=== PATIENT | female | born 1965 | race Caucasian/White ===

== ENCOUNTER 2022-07-22 19:50 | Inpatient (IN) | payer OTHER ==
[2022-07-22] MEDS ORDERED: ACETAMINOPHEN 325 MG TABLET (FP) PO ONE (20:53)
[2022-07-22] MEDS ORDERED: ACETAMINOPHEN 325 MG TABLET (FP) ONE (20:57)
[2022-07-22] MEDS ORDERED: LIDOCAINE PATCH REMOVAL MC SCH (22:00)
[2022-07-22] MEDS ORDERED: LIDOCAINE 5% TOPICAL PATCH TP ONE (22:14)
[2022-07-22] MEDS ORDERED: LIDOCAINE 5% TOPICAL PATCH ONE (22:42)
[2022-07-22] MEDS ORDERED: oxyCODONE HCL 5 MG TABLET PO ONE (23:30)
[2022-07-23] MEDS ORDERED: oxyCODONE HCL 5 MG TABLET ONE (00:17)
[2022-07-23] MEDS ORDERED: FUROSEMIDE 40 MG TABLET (FP) PO ONE (00:17)
[2022-07-23] MEDS ORDERED: FUROSEMIDE 40 MG/4 ML INJECTABLE VIAL IVPUSH ONE (00:37)
[2022-07-23] MEDS ORDERED: morphine CARPU-JECT 4 MG/1 ML DISP.SYRIN IVPUSH ONE (00:38)
[2022-07-23 00:56] LABS: BASO % 1.1 % (0-2.0); EOS % 2.8 % (0-4.5); HEMATOCRIT 27.9 % (32.4-45.2); HEMOGLOBIN 9.4 GM/dL (10.7-15.3); LYMPH % 26.3 % (8-40); MCH 27.8 pg (25.7-33.7); MCHC 33.6 g/dl (32.0-36.0); MEAN CELL VOLUME 82.6 fl (80-96); MEAN PLT VOLUME 8.2 fl (7.5-11.1); MONO % 6.4 % (3.8-10.2); NEUT % 63.4 % (42.8-82.8); PLATELET COUNT 228 10^3/uL (134-434); RBC 3.38 M/mm3 (3.60-5.2); RDW 14.9 % (11.6-15.6); WHITE BLOOD COUNT 9.4 K/mm3 (4.0-10.0)
[2022-07-23] MEDS ORDERED: FUROSEMIDE 40 MG/4 ML INJECTABLE VIAL ONE (00:57)
[2022-07-23] MEDS ORDERED: morphine SULFATE 4 MG/ML VIAL ONE (00:57)
[2022-07-23 01:22] LABS: CALCIUM 8.2 mg/dL (8.5-10.1)
[2022-07-23 01:23] LABS: ALBUMIN 2.5 g/dl (3.4-5.0); BLOOD UREA NITROGEN 49.8 mg/dL (7-18)
[2022-07-23 01:26] LABS: CREATININE 3.9 mg/dL (0.55-1.3)
[2022-07-23 01:27] LABS: BILIRUBIN,TOTAL 0.2 mg/dL (0.2-1)
[2022-07-23 01:28] LABS: TOT PROT 5.8 g/dl (6.4-8.2)
[2022-07-23 01:31] LABS: N-TERMINAL BNP 2279.7 pg/ml (5-125)
[2022-07-23 03:19] LABS: EPI CELLS 3 /uL (0-25.1); HYALINE CASTS 1 /uL (0-3.1); URINE APPEARANCE CLEAR; URINE BACTERIA 11 /uL (0-1359); URINE BILIRUBIN NEGATIVE (NEGATIVE); URINE COLOR YELLOW; URINE GLUCOSE (UA) TRACE (NEGATIVE); URINE KETONE NEGATIVE (NEGATIVE); URINE LEUK ESTERASE NEGATIVE (NEGATIVE); URINE NITRITE NEGATIVE (NEGATIVE); URINE PROTEIN 3+ (NEGATIVE); URINE RBC 29 /uL (0-23.9); URINE UROBILINOGEN 0.2 mg/dL (0.2-1.0); URINE WBC 5 /uL (0-25.8)
[2022-07-23] MEDS: HEPARIN NA (PORCINE) 5,000 UNITS/ML 1ML VIAL SQ SCH ×3 (06:18→21:38)
[2022-07-23] MEDS: INSULIN SLIDING SCALE (NOVOLOG) 1 VIAL SQ SCH ×4 (06:19→21:57)
[2022-07-23 08:29] LABS: BASO % 1.1 % (0-2.0); EOS % 3.3 % (0-4.5); HEMATOCRIT 25.2 % (32.4-45.2); HEMOGLOBIN 8.4 GM/dL (10.7-15.3); LYMPH % 34.7 % (8-40); MCH 27.5 pg (25.7-33.7); MCHC 33.5 g/dl (32.0-36.0); MEAN CELL VOLUME 82.1 fl (80-96); MEAN PLT VOLUME 8.6 fl (7.5-11.1); MONO % 5.9 % (3.8-10.2); PLATELET COUNT 180 10^3/uL (134-434); RBC 3.07 M/mm3 (3.60-5.2); RDW 15.4 % (11.6-15.6); WHITE BLOOD COUNT 7.7 K/mm3 (4.0-10.0)
[2022-07-23] MEDS ORDERED: ALBUTEROL SO4 HFA INHALER IH PRN (08:30)
[2022-07-23] MEDS ORDERED: BISACODYL 5 MG TABLET.DR (FP) PO PRN (08:30)
[2022-07-23 08:40] LABS: CALCIUM 8.2 mg/dL (8.5-10.1)
[2022-07-23 08:41] LABS: ALBUMIN 2.2 g/dl (3.4-5.0); BLOOD UREA NITROGEN 48.9 mg/dL (7-18); MAGNESIUM 2.1 mg/dL (1.8-2.4)
[2022-07-23 08:44] LABS: CHOLESTEROL 184 mg/dL (50-200); CREATININE 3.9 mg/dL (0.55-1.3); PHOSPHOROUS 5.1 mg/dL (2.5-4.9)
[2022-07-23 08:45] LABS: TRIGLYCERIDES 275 mg/dL (0-150)
[2022-07-23 08:46] LABS: BILIRUBIN,TOTAL 0.2 mg/dL (0.2-1); LDL CHOLESTEROL (ONLY SJRH) 95 mg/dL (5-100); TOT PROT 5.1 g/dl (6.4-8.2)
[2022-07-23 08:47] LABS: HDL CHOLESTEROL 40 mg/dL (40-60)
[2022-07-23 08:48] LABS: IRON SERUM 38 ug/dL (50-175)
[2022-07-23 08:49] LABS: TOTAL IRON BINDING CAPACITY 262 ug/dL (250-450)
[2022-07-23] MEDS ORDERED: BUMETANIDE 1 MG TABLET PO SCH (10:00)
[2022-07-23] MEDS ORDERED: LIDOCAINE 5% TOPICAL PATCH TP SCH (10:00)
[2022-07-23] MEDS ORDERED: BUDESONIDE/FORMETEROL FUMARATE 160/4.5 mcg INHALER IH SCH (10:00)
[2022-07-23] MEDS ORDERED: NIFEDIPINE 20 MG PO SCH (10:00)
[2022-07-23] MEDS ORDERED: TIOTROPIUM BROMIDE 2.5 MCG (SPIRIVA) RESPIMAT INHALER IH SCH (10:00)
[2022-07-23] MEDS ORDERED: LIDOCAINE PATCH REMOVAL MC ONE (10:00)
[2022-07-23] MEDS: ASPIRIN 81 MG CHEWABLE TABLETS PO SCH ×2 (10:05→10:40)
[2022-07-23] MEDS: NICOTINE 7 MG/24 HOURS TOPICAL PATCH TD SCH (10:05)
[2022-07-23] MEDS: ACETAMINOPHEN 1000 MG/100 ML BAG IVPB PRN ×2 (11:15→18:56)
[2022-07-23] MEDS: busPIRone HCL 5 MG TABLET PO SCH ×2 (11:58→21:38)
[2022-07-23] MEDS: lamoTRIgine 25 MG TABLET PO SCH (11:59)
[2022-07-23] MEDS: LIDOCAINE 5% TOPICAL PATCH TP SCH (11:59)
[2022-07-23] MEDS: FUROSEMIDE 20 MG TABLET (FP) PO SCH (11:59)
[2022-07-23] MEDS: NIFEdipine E.R 60 MG TABLET PO SCH ×2 (11:59→21:39)
[2022-07-23] MEDS ORDERED: LORazepam 2 MG/ML SDV VIAL IVPUSH ONE (12:24)
[2022-07-23] MEDS ORDERED: hydrALAZINE HCL 20 MG/ML VIAL IVPUSH ONE (15:47)
[2022-07-23] MEDS ORDERED: QUEtiapine FUMARATE 50 MG TABLET ONE (21:35)
[2022-07-23] MEDS: ATORVASTATIN CA 80 MG TABLET (FP) PO SCH (21:39)
[2022-07-23] MEDS: LIDOCAINE PATCH REMOVAL MC SCH (21:39)
[2022-07-23] MEDS: QUEtiapine FUMARATE 100 MG TABLET (FP) PO SCH (21:39)
[2022-07-23] MEDS: BUDESONIDE/FORMETEROL FUMARATE 160/4.5 mcg INHALER IH SCH (21:40)
[2022-07-24] MEDS: HEPARIN NA (PORCINE) 5,000 UNITS/ML 1ML VIAL SQ SCH ×3 (05:47→21:13)
[2022-07-24] MEDS: hydrOXYzine PAMOATE 25 MG CAPSULE (FP) PO PRN ×3 (05:56→19:34)
[2022-07-24] MEDS: INSULIN SLIDING SCALE (NOVOLOG) 1 VIAL SQ SCH ×4 (08:58→21:16)
[2022-07-24] MEDS: ACETAMINOPHEN 500 MG TABLET (FP) PO SCH ×3 (09:27→21:14)
[2022-07-24] MEDS: NIFEdipine E.R 60 MG TABLET PO SCH (09:28)
[2022-07-24] MEDS: ASPIRIN 81 MG CHEWABLE TABLETS PO SCH (09:28)
[2022-07-24] MEDS: busPIRone HCL 5 MG TABLET PO SCH ×2 (09:28→21:14)
[2022-07-24] MEDS: FUROSEMIDE 20 MG TABLET (FP) PO SCH (09:29)
[2022-07-24] MEDS: lamoTRIgine 25 MG TABLET PO SCH (09:29)
[2022-07-24] MEDS: BUDESONIDE/FORMETEROL FUMARATE 160/4.5 mcg INHALER IH SCH ×2 (09:30→21:22)
[2022-07-24] MEDS: TIOTROPIUM BROMIDE 2.5 MCG (SPIRIVA) RESPIMAT INHALER IH SCH (09:30)
[2022-07-24] MEDS: NICOTINE 7 MG/24 HOURS TOPICAL PATCH TD SCH (09:30)
[2022-07-24] MEDS: LIDOCAINE 5% TOPICAL PATCH TP SCH ×2 (09:30→09:35)
[2022-07-24 09:35] LABS: HEMATOCRIT 25.2 % (32.4-45.2); HEMOGLOBIN 8.8 GM/dL (10.7-15.3); MCH 28.4 pg (25.7-33.7); MCHC 34.9 g/dl (32.0-36.0); MEAN CELL VOLUME 81.3 fl (80-96); MEAN PLT VOLUME 8.3 fl (7.5-11.1); PLATELET COUNT 177 10^3/uL (134-434); RBC 3.11 M/mm3 (3.60-5.2); RDW 15.1 % (11.6-15.6); WHITE BLOOD COUNT 6.9 K/mm3 (4.0-10.0)
[2022-07-24 10:08] LABS: BLOOD UREA NITROGEN 54.6 mg/dL (7-18)
[2022-07-24 10:09] LABS: ALBUMIN 2.1 g/dl (3.4-5.0); CALCIUM 8.2 mg/dL (8.5-10.1)
[2022-07-24 10:11] LABS: CREATININE 4.4 mg/dL (0.55-1.3); PHOSPHOROUS 6.3 mg/dL (2.5-4.9)
[2022-07-24 10:15] LABS: TOT PROT 4.9 g/dl (6.4-8.2)
[2022-07-24 10:17] LABS: BILIRUBIN,TOTAL 0.1 mg/dL (0.2-1)
[2022-07-24] MEDS: SODIUM CHLORIDE 1,000 ML IV SCH (12:13)
[2022-07-24 15:17] VITALS: BMI 24.8
[2022-07-24] MEDS ORDERED: NIFEdipine E.R. 30 MG TABLET PO SCH (16:10)
[2022-07-24] MEDS ORDERED: QUEtiapine FUMARATE 50 MG TABLET ONE (21:07)
[2022-07-24] MEDS: ATORVASTATIN CA 80 MG TABLET (FP) PO SCH (21:14)
[2022-07-24] MEDS: GABAPENTIN 100 MG CAPSULE PO SCH (21:14)
[2022-07-24] MEDS: LIDOCAINE PATCH REMOVAL MC SCH (21:15)
[2022-07-24] MEDS: QUEtiapine FUMARATE 100 MG TABLET (FP) PO SCH (21:16)
[2022-07-25] MEDS: hydrOXYzine PAMOATE 25 MG CAPSULE (FP) PO PRN ×2 (01:39→12:03)
[2022-07-25] MEDS: ACETAMINOPHEN 500 MG TABLET (FP) PO SCH ×3 (05:34→21:45)
[2022-07-25] MEDS: HEPARIN NA (PORCINE) 5,000 UNITS/ML 1ML VIAL SQ SCH ×3 (05:35→21:45)
[2022-07-25] MEDS: INSULIN SLIDING SCALE (NOVOLOG) 1 VIAL SQ SCH ×4 (06:03→21:45)
[2022-07-25] MEDS: ASPIRIN 81 MG CHEWABLE TABLETS PO SCH (11:18)
[2022-07-25] MEDS: BUDESONIDE/FORMETEROL FUMARATE 160/4.5 mcg INHALER IH SCH ×2 (11:20→21:45)
[2022-07-25] MEDS: NICOTINE 7 MG/24 HOURS TOPICAL PATCH TD SCH (11:20)
[2022-07-25] MEDS: TIOTROPIUM BROMIDE 2.5 MCG (SPIRIVA) RESPIMAT INHALER IH SCH (11:20)
[2022-07-25] MEDS: LIDOCAINE 5% TOPICAL PATCH TP SCH (11:20)
[2022-07-25] MEDS: lamoTRIgine 25 MG TABLET PO SCH (11:21)
[2022-07-25] MEDS: busPIRone HCL 5 MG TABLET PO SCH ×2 (11:21→21:45)
[2022-07-25] MEDS: SODIUM CHLORIDE 1,000 ML IV SCH ×2 (11:22→12:02)
[2022-07-25] MEDS ORDERED: INSULIN (NOVOLOG) ASPART 100 UNITS/ML 10ML VIAL ONE (12:00)
[2022-07-25 19:44] LABS: BASO % 0.8 % (0-2.0); EOS % 2.7 % (0-4.5); HEMATOCRIT 25.8 % (32.4-45.2); HEMOGLOBIN 8.7 GM/dL (10.7-15.3); LYMPH % 19.3 % (8-40); MCH 27.7 pg (25.7-33.7); MCHC 33.9 g/dl (32.0-36.0); MEAN CELL VOLUME 81.7 fl (80-96); MEAN PLT VOLUME 8.3 fl (7.5-11.1); NEUT % 72.2 % (42.8-82.8); PLATELET COUNT 169 10^3/uL (134-434); RBC 3.16 M/mm3 (3.60-5.2); RDW 14.9 % (11.6-15.6); WHITE BLOOD COUNT 5.7 K/mm3 (4.0-10.0)
[2022-07-25 20:06] LABS: ALBUMIN 2.4 g/dl (3.4-5.0); BLOOD UREA NITROGEN 50.8 mg/dL (7-18); MAGNESIUM 2.1 mg/dL (1.8-2.4)
[2022-07-25 20:09] LABS: CREATININE 4.2 mg/dL (0.55-1.3); PHOSPHOROUS 5.4 mg/dL (2.5-4.9)
[2022-07-25 20:11] LABS: BILIRUBIN,TOTAL 0.2 mg/dL (0.2-1); TOT PROT 5.4 g/dl (6.4-8.2)
[2022-07-25] MEDS ORDERED: QUEtiapine FUMARATE 50 MG TABLET ONE (21:13)
[2022-07-25] MEDS: QUEtiapine FUMARATE 100 MG TABLET (FP) PO SCH (21:45)
[2022-07-25] MEDS: ATORVASTATIN CA 80 MG TABLET (FP) PO SCH (21:45)
[2022-07-25] MEDS: LIDOCAINE PATCH REMOVAL MC SCH (21:45)
[2022-07-25] MEDS: GABAPENTIN 100 MG CAPSULE PO SCH (21:45)
[2022-07-25] MEDS: oxyCODONE HCL 5 MG TABLET PO PRN (21:46)
[2022-07-26] MEDS: ACETAMINOPHEN 500 MG TABLET (FP) PO SCH ×4 (06:57→22:41)
[2022-07-26] MEDS: INSULIN SLIDING SCALE (NOVOLOG) 1 VIAL SQ SCH ×4 (06:58→22:33)
[2022-07-26] MEDS: lamoTRIgine 25 MG TABLET PO SCH ×2 (08:26→09:32)
[2022-07-26] MEDS: busPIRone HCL 5 MG TABLET PO SCH ×3 (08:26→22:24)
[2022-07-26] MEDS: SODIUM CHLORIDE 1,000 ML IV SCH ×2 (08:27→22:29)
[2022-07-26] MEDS: LIDOCAINE 5% TOPICAL PATCH TP SCH ×2 (08:28→09:32)
[2022-07-26] MEDS: NIFEdipine E.R. 30 MG TABLET PO SCH ×2 (08:29→09:33)
[2022-07-26] MEDS: NICOTINE 7 MG/24 HOURS TOPICAL PATCH TD SCH ×2 (08:29→09:33)
[2022-07-26] MEDS: oxyCODONE HCL 5 MG TABLET PO PRN ×2 (09:30→22:44)
[2022-07-26] MEDS: BUDESONIDE/FORMETEROL FUMARATE 160/4.5 mcg INHALER IH SCH ×2 (09:31→22:31)
[2022-07-26] MEDS: ASPIRIN 81 MG CHEWABLE TABLETS PO SCH (09:32)
[2022-07-26] MEDS: TIOTROPIUM BROMIDE 2.5 MCG (SPIRIVA) RESPIMAT INHALER IH SCH (09:32)
[2022-07-26] MEDS: hydrOXYzine PAMOATE 25 MG CAPSULE (FP) PO PRN ×2 (11:04→22:44)
[2022-07-26 11:37] LABS: BASO % 0.9 % (0-2.0); EOS % 2.6 % (0-4.5); HEMATOCRIT 27.2 % (32.4-45.2); HEMOGLOBIN 9.3 GM/dL (10.7-15.3); LYMPH % 21.9 % (8-40); MCH 27.9 pg (25.7-33.7); MCHC 34.1 g/dl (32.0-36.0); MEAN CELL VOLUME 81.7 fl (80-96); MEAN PLT VOLUME 8.4 fl (7.5-11.1); NEUT % 68.6 % (42.8-82.8); PLATELET COUNT 189 10^3/uL (134-434); RBC 3.33 M/mm3 (3.60-5.2); RDW 15.1 % (11.6-15.6); WHITE BLOOD COUNT 6.4 K/mm3 (4.0-10.0)
[2022-07-26 11:44] LABS: INR 0.99 (0.83-1.09); PROTHROMBIN TIME (PATIENT) 11.5 SEC (9.7-13.0)
[2022-07-26 12:05] LABS: BLOOD UREA NITROGEN 46.2 mg/dL (7-18); CALCIUM 8.3 mg/dL (8.5-10.1)
[2022-07-26 12:06] LABS: ALBUMIN 2.5 g/dl (3.4-5.0); MAGNESIUM 2.2 mg/dL (1.8-2.4)
[2022-07-26 12:09] LABS: CREATININE 3.7 mg/dL (0.55-1.3); PHOSPHOROUS 4.5 mg/dL (2.5-4.9)
[2022-07-26 12:10] LABS: BILIRUBIN,TOTAL 0.3 mg/dL (0.2-1)
[2022-07-26 12:11] LABS: TOT PROT 5.8 g/dl (6.4-8.2)
[2022-07-26] MEDS ORDERED: QUEtiapine FUMARATE 50 MG TABLET ONE (21:27)
[2022-07-26] MEDS: QUEtiapine FUMARATE 100 MG TABLET (FP) PO SCH (22:25)
[2022-07-26] MEDS: ATORVASTATIN CA 80 MG TABLET (FP) PO SCH (22:26)
[2022-07-26] MEDS: HEPARIN NA (PORCINE) 5,000 UNITS/ML 1ML VIAL SQ SCH (22:26)
[2022-07-26] MEDS: GABAPENTIN 100 MG CAPSULE PO SCH (22:26)
[2022-07-26] MEDS: LIDOCAINE PATCH REMOVAL MC SCH (22:35)
[2022-07-27] MEDS: HEPARIN NA (PORCINE) 5,000 UNITS/ML 1ML VIAL SQ SCH ×3 (06:10→21:02)
[2022-07-27] MEDS: ACETAMINOPHEN 500 MG TABLET (FP) PO SCH ×4 (06:10→21:04)
[2022-07-27] MEDS: INSULIN SLIDING SCALE (NOVOLOG) 1 VIAL SQ SCH ×4 (06:16→21:03)
[2022-07-27] MEDS: SODIUM CHLORIDE 1,000 ML IV SCH (07:39)
[2022-07-27 08:48] LABS: HEMATOCRIT 26.7 % (32.4-45.2); HEMOGLOBIN 9.1 GM/dL (10.7-15.3); MCH 27.7 pg (25.7-33.7); MEAN CELL VOLUME 81.4 fl (80-96); MEAN PLT VOLUME 7.7 fl (7.5-11.1); PLATELET COUNT 189 10^3/uL (134-434); RBC 3.28 M/mm3 (3.60-5.2); RDW 15.2 % (11.6-15.6); WHITE BLOOD COUNT 7.5 K/mm3 (4.0-10.0)
[2022-07-27 09:12] LABS: CALCIUM 8.3 mg/dL (8.5-10.1)
[2022-07-27 09:13] LABS: ALBUMIN 2.5 g/dl (3.4-5.0); BLOOD UREA NITROGEN 48.9 mg/dL (7-18)
[2022-07-27 09:16] LABS: CREATININE 3.8 mg/dL (0.55-1.3)
[2022-07-27 09:17] LABS: BILIRUBIN,TOTAL 0.2 mg/dL (0.2-1); TOT PROT 5.6 g/dl (6.4-8.2)
[2022-07-27] MEDS: hydrOXYzine PAMOATE 25 MG CAPSULE (FP) PO PRN ×2 (09:36→16:02)
[2022-07-27] MEDS: lamoTRIgine 25 MG TABLET PO SCH (09:36)
[2022-07-27] MEDS: ASPIRIN 81 MG CHEWABLE TABLETS PO SCH (09:36)
[2022-07-27] MEDS: LIDOCAINE 5% TOPICAL PATCH TP SCH (09:37)
[2022-07-27] MEDS: busPIRone HCL 5 MG TABLET PO SCH ×2 (09:37→21:02)
[2022-07-27] MEDS: NICOTINE 7 MG/24 HOURS TOPICAL PATCH TD SCH (09:37)
[2022-07-27] MEDS: NIFEdipine E.R. 30 MG TABLET PO SCH (09:38)
[2022-07-27] MEDS: BUDESONIDE/FORMETEROL FUMARATE 160/4.5 mcg INHALER IH SCH ×2 (09:39→21:03)
[2022-07-27] MEDS: TIOTROPIUM BROMIDE 2.5 MCG (SPIRIVA) RESPIMAT INHALER IH SCH (09:40)
[2022-07-27] MEDS ORDERED: NIFEdipine E.R 60 MG TABLET PO SCH (10:29)
[2022-07-27] MEDS ORDERED: NIFEdipine E.R. 30 MG TABLET PO ONE (10:53)
[2022-07-27] MEDS ORDERED: SODIUM CHLORIDE 0.45% 1,000 ML IV SCH (13:15)
[2022-07-27] MEDS ORDERED: hydrALAZINE HCL 20 MG/ML VIAL IVPUSH ONE (14:12)
[2022-07-27] MEDS ORDERED: hydrALAZINE HCL 10 MG TABLET PO ONE (14:14)
[2022-07-27 16:08] LABS: TOTAL PROTEIN, URINE 197.3 mg/dL (Not Estab.)
[2022-07-27] MEDS ORDERED: QUEtiapine FUMARATE 50 MG TABLET ONE (20:35)
[2022-07-27] MEDS: LIDOCAINE PATCH REMOVAL MC SCH (21:02)
[2022-07-27] MEDS: ATORVASTATIN CA 80 MG TABLET (FP) PO SCH (21:03)
[2022-07-27] MEDS: GABAPENTIN 100 MG CAPSULE PO SCH (21:03)
[2022-07-27] MEDS: QUEtiapine FUMARATE 100 MG TABLET (FP) PO SCH (21:03)
[2022-07-27] MEDS: oxyCODONE HCL 5 MG TABLET PO PRN (21:05)
[2022-07-28] MEDS: HEPARIN NA (PORCINE) 5,000 UNITS/ML 1ML VIAL SQ SCH ×2 (06:24→14:09)
[2022-07-28] MEDS: ACETAMINOPHEN 500 MG TABLET (FP) PO SCH ×2 (06:24→14:10)
[2022-07-28] MEDS: INSULIN SLIDING SCALE (NOVOLOG) 1 VIAL SQ SCH ×3 (06:25→17:06)
[2022-07-28 07:19] LABS: HEMATOCRIT 25.6 % (32.4-45.2); HEMOGLOBIN 8.8 GM/dL (10.7-15.3); MCHC 34.4 g/dl (32.0-36.0); MEAN CELL VOLUME 81.6 fl (80-96); MEAN PLT VOLUME 8.1 fl (7.5-11.1); PLATELET COUNT 175 10^3/uL (134-434); RBC 3.14 M/mm3 (3.60-5.2); WHITE BLOOD COUNT 6.1 K/mm3 (4.0-10.0)
[2022-07-28] MEDS ORDERED: NIFEdipine E.R 60 MG TABLET PO SCH (07:30)
[2022-07-28 09:17] LABS: CALCIUM 8.3 mg/dL (8.5-10.1)
[2022-07-28 09:18] LABS: ALBUMIN 2.3 g/dl (3.4-5.0); BLOOD UREA NITROGEN 52.4 mg/dL (7-18)
[2022-07-28 09:21] LABS: CREATININE 3.6 mg/dL (0.55-1.3)
[2022-07-28 09:22] LABS: BILIRUBIN,TOTAL 0.3 mg/dL (0.2-1); TOT PROT 5.2 g/dl (6.4-8.2)
[2022-07-28] MEDS: busPIRone HCL 5 MG TABLET PO SCH (11:01)
[2022-07-28] MEDS: TIOTROPIUM BROMIDE 2.5 MCG (SPIRIVA) RESPIMAT INHALER IH SCH (11:02)
[2022-07-28] MEDS: NICOTINE 7 MG/24 HOURS TOPICAL PATCH TD SCH (11:02)
[2022-07-28] MEDS: BUDESONIDE/FORMETEROL FUMARATE 160/4.5 mcg INHALER IH SCH (11:02)
[2022-07-28] MEDS: LIDOCAINE 5% TOPICAL PATCH TP SCH (11:02)
[2022-07-28] MEDS: ASPIRIN 81 MG CHEWABLE TABLETS PO SCH (11:03)
[2022-07-28] MEDS: lamoTRIgine 25 MG TABLET PO SCH (11:08)
[2022-07-28] MEDS: hydrOXYzine PAMOATE 25 MG CAPSULE (FP) PO PRN ×2 (11:08→17:04)
[2022-07-28 15:35] VITALS: TEMP 98.7
[2022-07-29 10:32] VITALS: BP 156/84; PULSE 71; RESP 18
== END 2022-07-28 17:20 | disposition home or self-care (01) | DRG 347 ==
LOC: JER 19:50 → JERBED 07-23 02:30 → J7W 07-23 05:15 → OBSVTOIN 07-28 14:53
PROVIDERS: ADMIT Internal Medicine; ATTEND Internal Medicine
DX: S22.089A Unspecified fracture of T11-T12 vertebra, initial encounter for closed fracture (principal); J90 Pleural effusion, not elsewhere classified; I13.0 Hypertensive heart and chronic kidney disease with heart failure and stage 1 through stage 4 chronic kidney disease, or unspecified chronic kidney disease; N18.4 Chronic kidney disease, stage 4 (severe); I50.32 Chronic diastolic (congestive) heart failure; E11.22 Type 2 diabetes mellitus with diabetic chronic kidney disease; I69.354 Hemiplegia and hemiparesis following cerebral infarction affecting left non-dominant side; D64.9 Anemia, unspecified; E78.5 Hyperlipidemia, unspecified; F17.210 Nicotine dependence, cigarettes, uncomplicated; F31.9 Bipolar disorder, unspecified; F41.1 Generalized anxiety disorder; E11.65 Type 2 diabetes mellitus with hyperglycemia; W19.XXXA Unspecified fall, initial encounter; Y93.9 Activity, unspecified; Y92.89 Other specified places as the place of occurrence of the external cause; Y99.9 Unspecified external cause status
CPT/HCPCS: 0241U-QW; 36415; 70450-TC; 71045-TC-FY; 72125-TC; 72128-TC; 76775-TC; 80053; 80061; 81003; 82550; 82553; 82570; 82728; 82962; 83036; 83540; 83550; 83735; 83880; 84100; 84156; 84157; 84300; 84436; 84443; 84484; 84540; 85025; 85027; 85045; 85610; 86704; 86803; 87340; 93005; 93010; 93306-TC; 93970-TC; 97116-GP; 97162-GP; 99285-25; G0378; J1644